=== PATIENT | female | born 1940 | race Caucasian/White ===

== ENCOUNTER 2016-11-23 06:34 | Emergency (ER) | payer BC ==
[~2016-11-23] VITALS: Ht 167.6 cm; Wt 74.8 kg
--- NOTE | 2016-11-23 06:50 | NUR ---
pt in with chest pain and left arm pain.now only the left arm numbness. ekg done, ermd in to examine the pt.
[2016-11-23] MEDS ORDERED: ASPIRIN 81 MG TAB.CHEW PO ONE (07:00)
[2016-11-23] MEDS ORDERED: SERT25TA PO (07:06)
[2016-11-23] MEDS ORDERED: LEVOTHYROXINE PO (07:06)
[2016-11-23] MEDS ORDERED: ATOR80TA PO (07:06)
[2016-11-23] MEDS ORDERED: BUPR300T52 PO (07:06)
[2016-11-23] MEDS ORDERED: EZET10TA PO (07:06)
[2016-11-23] MEDS ORDERED: ASPIRIN 81 MG TAB.CHEW ONE (07:17)
[2016-11-23 07:19] LABS: HEMATOCRIT 42.1 % (37.0-47.0); HEMOGLOBIN 13.6 g/dL (12.0-16.0); MEAN CORPUSCULAR HGB CONC 32 g/dL (32.0-37.0); MEAN CORPUSCULAR VOLUME 89.6 fL (81.0-99.0); PLATELET COUNT (AUTO) 164 K/uL (150-450); RED CELL DISTRIBUTION WIDTH 12.9 % (11.5-14.5); WHITE BLOOD COUNT (AUTO) 4.6 K/uL (4.0-11.2)
--- NOTE | 2016-11-23 07:21 | NUR ---
monitor shows sinus rhythm. iv sl to rt hand and blood drawn. report to [facility].
[2016-11-23 07:27] LABS: CALCIUM 10.2 mg/dL (8.5-10.1); CREATININE 1.2 mg/dL (0.6-1.3); POTASSIUM 4.1 mmol/L (3.5-5.1)
[2016-11-23 07:36] LABS: TROPONIN I < 0.017 ng/mL (0.00-0.056)
[2016-11-23 07:39] LABS: ALBUMIN 3.9 g/dL (3.4-5.0); BILIRUBIN,DIRECT 0.1 mg/dL (0.0-0.2); BILIRUBIN,TOTAL 0.4 mg/dL (0.2-1.0); TOTAL PROTEIN, SERUM 8.2 g/dL (6.4-8.2)
[2016-11-23 07:45] LABS: LACTIC ACID 1.4 mmol/L (0.4-2.0)
[2016-11-23 07:55] LABS: *BILIRUBIN,URIN NEGATIVE (NEGATIVE); *BLOOD, URINE 2+ (NEGATIVE); *CLARITY,URINE CLEAR (CLEAR); *COLOR,URINE YELLOW (YELLOW); *KETONES,URINE NEGATIVE (NEGATIVE); *PROTEIN,URINE NEGATIVE (NEGATIVE); *UROBILINOGEN,URINE 0.2 E.U./dl (NORMAL); LEUKOCYTE ESTERASE ,URINE NEGATIVE (NEGATIVE); NITRITE, URINE NEGATIVE (NEGATIVE); PH,URINE 7.5 (5.0-8.0); UGLUCOSE NEGATIVE (NEGATIVE)
[2016-11-23 08:04] LABS: BACTERIA,URINE NONE SEEN /HPF (NONE SEEN); WBC,URINE 0-3 /HPF (0-3)
[2016-11-23 08:05] LABS: SQUAMOUS EPITHELIAL CELL,UR FEW /HPF (NONE SEEN)
[2016-11-23 08:32] LABS: EOSINOPHILS % (MANUAL) 2 % (0-8); LYMPHOCYTES % (MANUAL) 32 % (20-40); MONOCYTES % (MANUAL) 16 % (2-10); NEUTROPHILS % (MANUAL) 50 % (42-75)
[2016-11-23 08:33] LABS: PLATELET ESTIMATE ADEQUATE
--- NOTE | 2016-11-23 10:45 | NUR ---
FAXEDD THE PT WORK UP TO PT OWN PMD, DR. FCO DAVIS AT [phone] PER PMD AND PT REQUEST.
--- NOTE | 2016-11-23 11:07 | NUR ---
Patient discharged to home in stable conditon. Written and verbal after care instructions given. Patient verbalizes understanding of instructions.PT WALKS IN STEADY GAIT, PT SAYS FEELS BETTER, PT ACCOMPANIED BY , D/C WITH GOOD SPIRIT.
[2016-11-23 11:08] VITALS: BP 118/59
== END 2016-11-23 11:08 | disposition home or self-care (01) ==
LOC: ER 06:35
DX: M79.602 Pain in left arm (principal); E78.00 Pure hypercholesterolemia, unspecified; C50.912 Malignant neoplasm of unspecified site of left female breast; Z88.6 Allergy status to analgesic agent; Z88.1 Allergy status to other antibiotic agents
CPT/HCPCS: 36415; 70030-TC; 71010; 83605; 84443; 85025; 85730; 86850; 86900; 86901; 93005; A4663

== ENCOUNTER 2016-12-20 21:28 | Emergency (ER) | payer BC ==
[~2016-12-20] VITALS: Ht 162.6 cm; Wt 77.1 kg
[~2016-12-20 21:28] MED LIST: ATOR80TA PO; BUPR300T52 PO; EZET10TA PO; LEVOTHYROXINE PO; SERT25TA PO
--- NOTE | 2016-12-20 21:50 | NUR ---
SEEN AND EXAMINED BY DR NUNEZ, XRAY ORDERED. LEFT THUMB DISCOLORED, PULSES PRESENT.
--- NOTE | 2016-12-20 22:20 | NUR ---
ICE PACK TO LEFT BRUISING APPLIED, FAMILY AT BEDSIDE.
--- NOTE | 2016-12-20 23:06 | NUR ---
PT DECLINED BLOOD DRAW ,TALKED TO DR NUNEZ AND PT WANTS TO GO HOME, [facility] GIVEN AND DISCHARGED AMBULATORY IN STABLE CONDITION.
[2016-12-20 23:17] VITALS: BP 107/68
== END 2016-12-20 23:17 | disposition home or self-care (01) ==
LOC: ER 21:30
DX: S60.222A Contusion of left hand, initial encounter (principal); E78.5 Hyperlipidemia, unspecified; C50.912 Malignant neoplasm of unspecified site of left female breast; Z88.6 Allergy status to analgesic agent; Z88.1 Allergy status to other antibiotic agents; X58.XXXA Exposure to other specified factors, initial encounter; Y93.9 Activity, unspecified; Y99.9 Unspecified external cause status; Y92.9 Unspecified place or not applicable
CPT/HCPCS: 73130; A4663